=== PATIENT | male | born 1985 | race Hispanic/Latino ===

== ENCOUNTER 2017-01-15 15:04 | Emergency (ER) | payer OTHER ==
[2017-01-15] MEDS ORDERED: Naproxen 500 MG TAB PO STA (15:48)
--- NOTE | 2017-01-15 15:55 | ED PDOC ---
Upper Extremity Pain/Injury Time Seen by Provider: 01/15/17 15:40 Chief Complaint (Nursing): Upper Extremity Problem/Injury Chief Complaint (Provider): Lt shoulder pain History Per: Patient History/Exam Limitations: no limitations Onset/Duration Of Symptoms: Days (1 week) Current Symptoms Are (Timing): Still Present Quality: "Pain" Exacerbating Factor(s): Strenuous Use Of Affected Area, Movement Additional Complaint(s): The pt is a 31yo male, presents to the ED for evaluation of left sided shoulder pain for the psat week. 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 Pt states the pain radiates to his forearm with strenuous use. He reports taking Motrin for pain with minimal relief. He denies any injury or objects falling onto his shoulder. Currently, he offers no additional medical complaints. Past Medical History Reviewed: Historical Data, Nursing Documentation, Vital Signs Vital Signs: Last Vital Signs Temp 98.3 F 01/15/17 15:15 Pulse 70 01/15/17 15:15 Resp 18 01/15/17 15:15 BP 125/66 01/15/17 15:15 Pulse Ox 99 01/15/17 15:15 - Medical History PMH: Arthritis (back, knees) Denies: Depression, Chronic Kidney Disease - Surgical History Surgical History: No Surg Hx - Family History Family History: States: Unknown Family Hx - Living Arrangements Living Arrangements: With Family - Home Medications Home Medications: Ambulatory Orders Medication Instructions Recorded Ibuprofen [Motrin] 600 mg PO Q6 PRN #20 tab 12/04/14 Oxycodone HCl/Acetaminophen 1 tab PO PRN PRN 12/04/14 [Percocet 325 mg-5 mg] Oxycodone HCl/Acetaminophen 1 tab PO Q6 #10 tab 12/04/14 [Percocet 325 mg-5 mg] diaZEpam [Valium] 5 mg PO Q8 PRN #6 tab 12/04/14 Albuterol HFA [Ventolin HFA 90 0.09 mg IH Q4 #1 puff 07/17/15 mcg/actuation (8 g)] Azithromycin 250 mg PO DAILY #6 tab 07/17/15 Fluticasone Propionate [Flonase] 1 spr INH DAILY #1 bottle 07/17/15 Loratadine/Pseudoephedrine S 1 t12 PO BID #20 t12 07/17/15 [Claritin-D 12Hr 5 mg-120 mg] Amoxicillin/Clavulanate Pota 1 tab PO BID #20 tab 07/20/15 [Augmentin 875 mg-125 mg] Oxycodone HCl/Acetaminophen 1 tab PO Q6 PRN #10 tab 11/01/15 [Percocet 325 mg-5 mg] Methylprednisolone [Medrol] 4 mg PO TITR #1 unit 02/04/16 Famotidine [Pepcid] 20 mg PO DAILY PRN #6 tab 06/20/16 Ondansetron [Zofran] 4 mg PO Q8H PRN #6 tab 06/20/16 Naproxen [Naprosyn Tab] 375 mg PO Q8 PRN #21 tab 01/15/17 - Allergies Allergies/Adverse Reactions: Allergies Allergy/AdvReac Type Severity Reaction Status Date / Time No Known Allergies Allergy Verified 11/01/15 18:08 Review of Systems ROS Statement: Except As Marked, All Systems Reviewed And Found Negative Musculoskeletal: Positive for: Shoulder Pain (left) Physical Exam - Reviewed Nursing Documentation Reviewed: Yes Vital Signs Reviewed: Yes - Physical Exam Appears: Positive for: Well, Non-toxic, No Acute Distress Head Exam: Positive for: ATRAUMATIC, NORMAL INSPECTION, NORMOCEPHALIC Skin: Positive for: Normal Color Neck: Positive for: Normal Cardiovascular/Chest: Positive for: Regular Rate, Rhythm Respiratory: Negative for: Respiratory Distress Extremity: Positive for: Normal ROM (good adduction, normal bicep flexion and tricep extension.), Tenderness (tenderness noted to sub-scapular region. 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 ). Negative for: Deformity Neurologic/Psych: Positive for: Alert, Oriented - ECG O2 Sat by Pulse Oximetry: 99 Medical Decision Making Medical Decision Making: Time: 1550 Impression: Left shoulder pain Plan: -- XR Left shoulder -- Naproxen 500 mg PO --Reassess XR FINDINGS: BONES: Normal. No fracture. JOINTS: Normal. Glenohumeral and acromioclavicular joints preserved. No osteoarthritis. SOFT TISSUES: Normal. OTHER FINDINGS: None. IMPRESSION: Normal radiographs of the left shoulder. Pt. stable for d/c home. Will give Rx Naproxen for pain. Scribe Attestation: All records were documented by Arti John, acting as a Scribe for KIRAN Oliveira. Provider Scribe Attestation: All medical record entries made by the Scribe were at my direction and personally dictated by me. I have reviewed the chart and agree that the record accurately reflects my personal performance of the history, physical exam, medical decision making, and the department course for this patient. I have also personally directed, reviewed, and agree with the discharge instructions and disposition. Disposition - Clinical Impression Clinical Impression: Shoulder pain, Rotator cuff (capsule) sprain - Disposition Referrals: Arsen Delgado MD [Staff Provider] - Disposition: Routine/Home Disposition Time: 16:55 Condition: FAIR Prescriptions: Naproxen [Naprosyn Tab] 375 mg PO Q8 PRN #21 tab PRN Reason: Pain, Moderate (4-7) Instructions: Rotator Cuff Injury (ED) Forms: [facility] ED School/Work Excuse
[2017-01-15] MEDS ORDERED: Naproxen 500 MG TAB PO ONE (16:02)
[2017-01-15 16:07] VITALS: BP 125/66; PULSE 70; RESP 18; TEMP 98.3; O2SAT 99
--- NOTE | 2017-01-15 16:32 | RAD ---
PROCEDURE: Radiographs of the Left Shoulder HISTORY: SHOULDER PAIN COMPARISON: No prior. FINDINGS: BONES: Normal. No fracture. JOINTS: Normal. Glenohumeral and acromioclavicular joints preserved. No osteoarthritis. SOFT TISSUES: Normal. OTHER FINDINGS: None. IMPRESSION: Normal radiographs of the left shoulder.
== END 2017-01-15 17:55 | disposition home or self-care (01) ==
LOC: H.ER 15:04
DX: M25.512 Pain in left shoulder (principal); X50.0XXA Overexertion from strenuous movement or load, initial encounter; Y99.0 Civilian activity done for income or pay

== ENCOUNTER 2017-05-17 08:47 | Emergency (ER) | payer OTHER ==
[2017-05-17 08:52] VITALS: BP 113/62; PULSE 70; RESP 16; TEMP 98.8; O2SAT 99
[2017-05-17 08:54] VITALS: BMI 19.8
--- NOTE | 2017-05-17 10:08 | ED PDOC ---
Upper Extremity Pain/Injury Time Seen by Provider: 05/17/17 09:20 Chief Complaint (Nursing): Upper Extremity Problem/Injury Chief Complaint (Provider): Right Wrist Pain History Per: Patient History/Exam Limitations: no limitations Onset/Duration Of Symptoms: Days (x 1) Current Symptoms Are (Timing): Still Present Additional Complaint(s): Jose is a 31 y/o male with a history of arthritis who presents to the ED after falling while skateboarding yesterday. He complains of pain in his right wrist, especially when rotating his forearm. Patient denies any other medical complaints. PMD: None Provided Past Medical History Reviewed: Historical Data, Nursing Documentation, Vital Signs Vital Signs: Last Vital Signs Temp 98.8 F 05/17/17 08:52 Pulse 70 05/17/17 08:52 Resp 16 05/17/17 08:52 BP 113/62 05/17/17 08:52 Pulse Ox 99 05/17/17 08:52 - Medical History PMH: Arthritis (back, knees) Denies: Depression, Chronic Kidney Disease - Family History Family History: States: Unknown Family Hx - Social History Current smoker - smoking cessation education provided: Yes SMOKER/PACKS PER DAY:: 1 Alcohol: None Drugs: Denies - Home Medications Home Medications: Ambulatory Orders Medication Instructions Recorded No Known Home Med 05/17/17 - Allergies Allergies/Adverse Reactions: Allergies Allergy/AdvReac Type Severity Reaction Status Date / Time No Known Allergies Allergy Verified 05/17/17 09:04 Review of Systems ROS Statement: Except As Marked, All Systems Reviewed And Found Negative Musculoskeletal: Positive for: Arm Pain (right wrist) Physical Exam - Reviewed Nursing Documentation Reviewed: Yes Vital Signs Reviewed: Yes - Physical Exam Appears: Positive for: Non-toxic, No Acute Distress Head Exam: Positive for: ATRAUMATIC, NORMAL INSPECTION, NORMOCEPHALIC Skin: Positive for: Normal Color, Warm, Dry Cardiovascular/Chest: Positive for: Regular Rate, Rhythm. Negative for: Murmur Respiratory: Negative for: Wheezing, Respiratory Distress Extremity: Positive for: Tenderness (right wrist), Swelling (right wrist). Negative for: Deformity Neurologic/Psych: Positive for: Alert, Oriented - ECG O2 Sat by Pulse Oximetry: 99 (RA) Pulse Ox Interpretation: Normal Medical Decision Making Medical Decision Making: Time: 10:09 Initial Impression: Right wrist injury Initial Plan: --XR Right Hand/Wrist --Oxycodone/Acetaminophen Time: 1200 Right wrist splinted. Patient has elected to leave the ED before his treatment is complete. He doest not want to wait for xrays to be read by radiologist ( there is a delay in transmission of xxray reports from radiologist, pt made aware of this delay on multiple occassions) as there is a suspicion of fracture. pt instructed to follow up with orthopedist. Pt walked out of ER. Scribe Attestation: Documented by Marcellus Valdes, acting as a scribe for Dr. Cesar Louis. Provider Scribe Attestation: All medical record entries made by the Scribe were at my direction and personally dictated by me. I have reviewed the chart and agree that the record accurately reflects my personal performance of the history, physical exam, medical decision making, and the department course for this patient. I have also personally directed, reviewed, and agree with the discharge instructions and disposition. Disposition - Clinical Impression Clinical Impression: Wrist injury - Patient ED Disposition Is Patient to be Admitted: No - Disposition Disposition: Left W/O Treatment Disposition Time: 12:00 Condition: STABLE Forms: [employer] ([place] Citizen)
[2017-05-17] MEDS ORDERED: Oxycodone/Acetaminophen 5/325 mg Tab PO ONE (10:09)
[2017-05-17] MEDS ORDERED: Oxycodone/Acetaminophen 5/325 mg Tab ONE (10:27)
--- NOTE | 2017-05-17 13:08 | RAD ---
PROCEDURE: Right Hand Radiographs. HISTORY: Fall COMPARISON: None. FINDINGS: BONES: There is no acute displaced fracture or bone destruction. Bone alignment and mineralization are normal. JOINTS: Normal. No osteoarthritic changes. SOFT TISSUES: Normal. OTHER FINDINGS: None. IMPRESSION: No acute fracture or dislocation.
--- NOTE | 2017-05-17 15:05 | RAD ---
PROCEDURE: Right Wrist Radiographs. HISTORY: Fall COMPARISON: None. FINDINGS: BONES: There is an apparent lucency in the scaphoid waist. Bone alignment and mineralization are normal. JOINTS: The joint spaces are preserved. SOFT TISSUES: There is mild soft tissue swelling at the wrist joint. OTHER FINDINGS: None. IMPRESSION: Apparent lucency in the scaphoid waist may represent a nondisplaced fracture. Additional views of the wrist (scaphoid views) are recommended for definitive evaluation.
== END 2017-05-17 12:10 | disposition left against medical advice (07) ==
LOC: H.ER 08:47
DX: S69.91XA Unspecified injury of right wrist, hand and finger(s), initial encounter (principal); V00.131A Fall from skateboard, initial encounter; Y93.51 Activity, roller skating (inline) and skateboarding

== ENCOUNTER 2017-08-04 19:40 | Emergency (ER) | payer OTHER ==
[2017-08-04 19:40] VITALS: BMI 19.8
[2017-08-04 19:46] VITALS: BP 111/73; PULSE 77; RESP 16; TEMP 97.8; O2SAT 97
[2017-08-04] MEDS ORDERED: Oxycodone/Acetaminophen 5/325 mg Tab PO STA (20:52)
--- NOTE | 2017-08-04 21:02 | ED PDOC ---
HPI: Back Time Seen by Provider: 08/04/17 19:50 Chief Complaint (Nursing): Back Pain Chief Complaint (Provider): fever/back pain History Per: Patient History/Exam Limitations: no limitations Additional Complaint(s): 31yo M in ED -states for 2 day has had fever peaked at 101 with sore throat cough body aches no sick contacts no pal pt also c/o of back pain after moving furniture with friends. now feels a pulled muscle to lumbar spine-has herniated lumbar disc. no incontinence of urine or BM. no numbness or tingling in LE. Past Medical History Reviewed: Historical Data, Nursing Documentation, Vital Signs Vital Signs: Last Vital Signs Temp 97.8 F 08/04/17 19:44 Pulse 77 08/04/17 19:44 Resp 16 08/04/17 19:44 BP 111/73 08/04/17 19:44 Pulse Ox 97 08/04/17 19:44 - Medical History PMH: Arthritis (back, knees) Denies: Depression, Chronic Kidney Disease - Family History Family History: States: Unknown Family Hx - Home Medications Home Medications: Ambulatory Orders Medication Instructions Recorded Oseltamivir Phosphate [Tamiflu] 75 mg PO BID #10 capsule 08/04/17 - Allergies Allergies/Adverse Reactions: Allergies Allergy/AdvReac Type Severity Reaction Status Date / Time No Known Allergies Allergy Verified 05/17/17 09:04 Review of Systems ROS Statement: Except As Marked, All Systems Reviewed And Found Negative Gastrointestinal: Negative for: Nausea, Vomiting, Abdominal Pain Musculoskeletal: Positive for: Back Pain Physical Exam - Reviewed Nursing Documentation Reviewed: Yes Vital Signs Reviewed: Yes - Physical Exam Appears: Positive for: Well, Non-toxic, No Acute Distress Head Exam: Positive for: ATRAUMATIC, NORMAL INSPECTION, NORMOCEPHALIC Skin: Positive for: Normal Color, Warm, DRY Eye Exam: Positive for: Normal appearance, EOMI, PERRL Neck: Positive for: Normal, Painless ROM Cardiovascular/Chest: Positive for: Regular Rate, Rhythm Respiratory: Positive for: CNT, Normal Breath Sounds Gastrointestinal/Abdominal: Positive for: Normal Exam, Bowel Sounds, Soft. Negative for: Tenderness Back: Positive for: Normal Inspection. Negative for: L CVA Tenderness, R CVA Tenderness Extremity: Positive for: Normal ROM Neurologic/Psych: Positive for: Alert, Oriented - ECG O2 Sat by Pulse Oximetry: 97 - Progress ED Course And Treament: Orders Category Date Time Status Ketorolac [Toradol] Med 08/04/17 20:13 Discontinued 30 mg IM STAT STA oxyCODONE/Acetaminophen [Percocet 5/325 mg Tab] Med 08/04/17 20:52 Stat 1 tab PO STAT STA INFLUENZA A B Stat Serology 08/04/17 20:52 Uncollected Medical Decision Making Medical Decision Making: pt will stlll ed/c with tamiflu due to presentation and symptoms. pt advsied to f.u with pmd for back pain crhonci. Orders Category Date Time Status Ketorolac [Toradol] Med 08/04/17 20:13 Discontinued 30 mg IM STAT STA oxyCODONE/Acetaminophen [Percocet 5/325 mg Tab] Med 08/04/17 20:52 Discontinued 1 tab PO STAT STA INFLUENZA A B Stat Serology 08/04/17 21:02 Completed 08/04/17 21:02 Influenza Typ A,B (EIA) Negative for flu a/b Disposition - Clinical Impression Clinical Impression: Back strain, Influenza - Patient ED Disposition Is Patient to be Admitted: No Counseled Patient/Family Regarding: Studies Performed, Diagnosis, Need For Followup, Rx Given - Disposition Referrals: LTAC[facility] [Outside] [facility] [Outside] Disposition: Routine/Home Disposition Time: 22:06 Condition: STABLE Prescriptions: Oseltamivir Phosphate [Tamiflu] 75 mg PO BID #10 capsule Instructions: Influenza (ED)
== END 2017-08-04 22:15 | disposition home or self-care (01) ==
LOC: H.ER 19:40
DX: J11.1 Influenza due to unidentified influenza virus with other respiratory manifestations (principal); M54.9 Dorsalgia, unspecified

== ENCOUNTER 2018-01-22 16:09 | Emergency (ER) | payer SELFPAY ==
[2018-01-22 16:09] VITALS: BMI 19.8
[2018-01-22 16:23] VITALS: BP 113/60; PULSE 79; RESP 20; TEMP 98.5; O2SAT 99
[2018-01-22] MEDS ORDERED: Tdap Vaccine 0.5 ml Vial (10-64 yrs) IM ONE ×2 (16:38→16:52)
--- NOTE | 2018-01-22 18:10 | RAD ---
PROCEDURE: Left Hand Radiographs. HISTORY: left hand laceration COMPARISON: None. FINDINGS: BONES: Normal. No fracture. JOINTS: Normal. No osteoarthritic changes. SOFT TISSUES: Laceration at the level of the interphalangeal joint left thumb. No visulaized radiopaque/visualized foreign body. OTHER FINDINGS: None. IMPRESSION: No significant osseous or articular abnormalities nor is there evidence of foreign body.
[2018-01-22] MEDS ORDERED: Oxycodone/Acetaminophen 5/325 mg Tab PO ONE (18:52)
--- NOTE | 2018-01-22 18:53 | ED PDOC ---
HPI: Wound Care - HPI Time Seen by Provider: 01/22/18 16:33 Chief Complaint (Nursing): Abnormal Skin Integrity Chief Complaint (Provider): Laceration to left hand History Per: Patient History Of Present Illness: 32 year old male sent from urgent care (prompt ) for treatment and reevaluation of laceration to left hand. Patient reports that around 3pm today he was cutting some wood for his friend when his hand slipped from the R causing him to cut his left hand. Tetanus not up to date. Exam Limitations: no limitations Onset/Duration Of Symptoms: Hrs Current Symptoms Are (Timing): Still Present Past Medical History Reviewed: Historical Data, Nursing Documentation, Vital Signs Vital Signs: Last Vital Signs Temp 98.5 F 01/22/18 16:17 Pulse 79 01/22/18 16:17 Resp 20 01/22/18 16:17 BP 113/60 01/22/18 16:17 Pulse Ox 99 01/22/18 16:17 - Medical History PMH: Arthritis (back, knees) Denies: Depression, Chronic Kidney Disease - Surgical History Surgical History: No Surg Hx - Family History Family History: States: Unknown Family Hx - Social History Current smoker - smoking cessation education provided: Yes (Heavy Smoker > 10 Cigarettes Daily) Alcohol: None Drugs: Denies - Home Medications Home Medications: Ambulatory Orders Medication Instructions Recorded Cephalexin [Keflex] 500 mg PO Q6 #28 capsule 01/22/18 - Allergies Allergies/Adverse Reactions: Allergies Allergy/AdvReac Type Severity Reaction Status Date / Time No Known Allergies Allergy Verified 01/22/18 16:36 Review of Systems ROS Statement: Except As Marked, All Systems Reviewed And Found Negative Musculoskeletal: Positive for: Hand Pain (laceration to dorsum of left hand) Physical Exam - Reviewed Nursing Documentation Reviewed: Yes Vital Signs Reviewed: Yes - Physical Exam Appears: Positive for: Non-toxic, No Acute Distress Skin: Positive for: Normal Color, Warm, Dry. Negative for: Rash Cardiovascular/Chest: Negative for: Tachycardia Respiratory: Negative for: Wheezing, Respiratory Distress Extremity: Positive for: Other (1 cm laceration on dorsum of left hand right below the thumb. hand warm and dry, intact neurovascular exam; cap refills less than 2 seconds;2+ radial pulse 2+ strong;Wound appears to be deep w some ligament exposed and slight oozing of blood. no surrounding cellulitis.). Negative for: Tenderness, Deformity, Swelling Neurologic/Psych: Positive for: Alert, Oriented - ECG O2 Sat by Pulse Oximetry: 99 (RA) Pulse Ox Interpretation: Normal Medical Decision Making Medical Decision Makin Initial Impression 32 year old male presenting with laceration to left hand Initial plan: * RAD left hand * Percocet 1 tab PO * Adacel 0.5 ml IM * 1635 Apparently, Dr Talha Martinez- Hand surgeon- is on his way to come to see this patient and repair the laceration (he had been called prior to arrival of pt to do procedure) Pt was aware of that plan. He is in agreement with plan. 1700 Dr Martinez is not coming in as he got caught up in the office and is unable to come. Pt wants to know when the specialist will be coming to repair the wound. [address] Massey (plastic surgeon) who will come to the ER to repair the laceration. Wound irrigated. [address] Jalloh. pending Dr Massey arrival. ------- Documented by Angi Rodriguez acting as a scribe for Cesar Louis MD. All medical record entries made by the Scribe were at my direction and personally dictated by me. I have reviewed the chart and agree that the record accurately reflects my personal performance of the history, physical exam, medical decision making, and the department course for this patient. I have also personally directed, reviewed, and agree with the discharge instructions and disposition. Disposition - Clinical Impression Clinical Impression: Laceration of left hand - Patient ED Disposition Is Patient to be Admitted: Transfer of Care - Disposition Referrals: Mayra Jones MD [Staff Provider] - Disposition: Transfer of Care Disposition Time: 19:00 Condition: STABLE Prescriptions: Cephalexin [Keflex] 500 mg PO Q6 #28 capsule Instructions: Laceration Repair, Laceration Repair With Stitches (DC) Forms: [employer] (Spanish), [facility] ED School/Work Excuse
[2018-01-22] MEDS ORDERED: Oxycodone/Acetaminophen 5/325 mg Tab ONE (18:55)
--- NOTE | 2018-01-22 19:30 | ED PDOC ---
- ECG O2 Sat by Pulse Oximetry: 99 (RA) Pulse Ox Interpretation: Normal Medical Decision Making Medical Decision Making: Time: 19:00 Patient signed out to me by Dr. Louis pending plastic surgical consult. At 19:40 Patient was informed by RN that Dr. Massey would not be available until 20:45 for a suture repair. He thereafter requested that an ED provider suture his wound. This provider was unavailable at that time due to active care ogf a critical patient. The patient was offered earlier closure by a PA which he refused. Patient subsequently eloped. Provider was thereafter informed by charge weigher that patient was in waiting room attempting to file a complaint regarding delay in care after he had physically left to smoke a cigarette. [facility] Zainab Ortiz was able to successfully convince patient to return to his ED room for further treatment. He became amenable for suturing by ED provider. Provider expressed understanding of patient's frustration with the delay in his care. Please refer to laceration procedure note. DX Left Hand Laceration Patient was instructed to follow-up with hand surgeon Dr. Bryant. Scribe Attestation: Documented by James Guy acting as a scribe Yury Jalloh MD. Scribe Attestation: All medical record entries made by the Scribe were at my direction and personally dictated by me. I have reviewed the chart and agree that the record accurately reflects my personal performance of the history, physical exam, medical decision making, and the department course for this patient. I have also personally directed, reviewed, and agree with the discharge instructions and disposition. Disposition - Clinical Impression Clinical Impression: Laceration of left hand - POA Present On Arrival: None - Disposition Referrals: Mayra Jones MD [Staff Provider] - Disposition: Routine/Home Disposition Time: 21:00 Condition: STABLE Prescriptions: Cephalexin [Keflex] 500 mg PO Q6 #28 capsule Instructions: Laceration Repair, Laceration Repair With Stitches (DC) Forms: [employer] (Romanian), [facility] ED School/Work Excuse Procedure: Wound Repair - Time Performed Time Performed: 20:50 - Procedure Procedure: Wound Repair: 2% Lidocaine was used. 9, 5.0 monocryl sutures were used to the left hand. - Indications Indication(s):: Laceration - Location Location:: Hand (left) - Anesthetic Technique Local/Regional Anesthetic:: Lidocaine 2% - Debris Debris:: None - Patient tolerated procedure Patient Tolerated Procedure:: Well Procedures - Laceration/Wound Repair Hand Wound Length (cm): 5 Wound's Depth, Shape: into muscle, linear Wound Explored: no foreign body removed Betadine Prep?: Yes Anesthesia: 1% Lidocaine Volume Anesthetic (ccs): 5 Wound Debrided: minimal Suture Size/Type: 5:0, proline Number of Sutures: 9 Layer Closure?: No Wound Complexity: Simple Sterile Dressing Applied?: Yes Splint Applied?: No Sling Applied?: Yes Progress: Left hand laceratio sutured yessicayth good cosmetic effect and closure. Patient tolerated procedure well.
[2018-01-22] MEDS ORDERED: Lidocaine 2% Inj (20ml) ONE (20:40)
== END 2018-01-22 21:46 | disposition home or self-care (01) ==
LOC: H.ER 16:09
DX: S61.412A Laceration without foreign body of left hand, initial encounter (principal); W26.8XXA Contact with other sharp object(s), not elsewhere classified, initial encounter; Y92.89 Other specified places as the place of occurrence of the external cause

== ENCOUNTER 2018-09-18 01:37 | Emergency (ER) | payer SELFPAY ==
[2018-09-18 01:38] VITALS: BMI 19.8
[2018-09-18 01:41] VITALS: RESP 18
--- NOTE | 2018-09-18 03:12 | ED PDOC ---
History of Present Illness History of Present Illness: 32 year old M with no PMHx presenting with flu-like symptoms, states he has multiple family members who were diagnosed with the flu and he started with symptoms Sunday night of fever, chills, bodyaches, dry cough. States he vomited x 1 today. States he's been taking tylenol and motrin without relief. States his eyes are burning and he feels as though he has phlegm and is congested. HPI: Influenza Time Seen by Provider: 09/18/18 01:46 Chief Complaint: Flu-like Symptoms History Per: Patient Exam Limitations: no limitations Onset/Duration Of Symptoms: Days Symptoms include: fever, headache, bodyaches, sore throat, cough, nasal congestion, vomiting Sick Contacts (Context): Family Member(s) Past Medical History Vital Signs: Last Vital Signs Temp 100.2 F H 09/18/18 01:39 Pulse 97 H 09/18/18 01:39 Resp 18 09/18/18 01:39 BP 119/56 L 09/18/18 01:39 Pulse Ox 97 09/18/18 01:39 - Medical History PMH: Arthritis (back, knees) Denies: Depression, Chronic Kidney Disease - Family History Family History: States: Unknown Family Hx - Home Medications Home Medications: Ambulatory Orders Medication Instructions Recorded Cephalexin [Keflex] 500 mg PO Q6 #28 capsule 01/22/18 Ondansetron ODT [Zofran ODT] 4 mg PO Q8 PRN #12 odt 09/18/18 Oseltamivir Phosphate [Tamiflu] 75 mg PO BID 5 Days #10 capsule 09/18/18 - Allergies Allergies/Adverse Reactions: Allergies Allergy/AdvReac Type Severity Reaction Status Date / Time No Known Allergies Allergy Verified 01/22/18 16:36 Review of Systems ROS Statement: Except As Marked, All Systems Reviewed And Found Negative Constitutional: Positive for: Fever, Chills ENT: Positive for: Nose Congestion, Throat Pain Gastrointestinal: Positive for: Nausea, Vomiting Physical Exam - Reviewed Nursing Documentation Reviewed: Yes Vital Signs Reviewed: Yes - Physical Exam Appears: Positive for: Well, Non-toxic, No Acute Distress Head Exam: Positive for: ATRAUMATIC, NORMAL INSPECTION, NORMOCEPHALIC Skin: Positive for: Normal Color, Warm, DRY Eye Exam: Positive for: EOMI, Normal appearance, PERRL ENT: Positive for: Normal ENT Inspection Neck: Positive for: Normal, Painless ROM Cardiovascular/Chest: Positive for: Regular Rate, Rhythm Respiratory: Positive for: CNT, Normal Breath Sounds Gastrointestinal/Abdominal: Positive for: Normal Exam, Soft Back: Positive for: Normal Inspection Extremity: Positive for: Normal ROM Neurologic/Psych: Positive for: Alert, butcherette II-XII, Oriented. Negative for: Motor/Sensory Deficits Medical Decision Making Medical Decision MakinAM Patient presenting with flu-like illness --Patient is very well appearing, low grade fever currently --Symptoms are likely related to flu, will treat symptomatically, patient within treatment window for tamiflu 600AM --Patient tolerating PO, vitals stable, well appearing upon discharge - ECG O2 Sat by Pulse Oximetry: 97 Disposition - Clinical Impression Clinical Impression: Influenza - Disposition Referrals: [facility] [Outside] Disposition: Routine/Home Disposition Time: 06:00 Condition: IMPROVED Prescriptions: Ondansetron ODT [Zofran ODT] 4 mg PO Q8 PRN #12 odt PRN Reason: Nausea/Vomiting Oseltamivir Phosphate [Tamiflu] 75 mg PO BID 5 Days #10 capsule Instructions: Flu, Adult (DC) Forms: [facility] (H[place]ian)
[2018-09-18 04:50] VITALS: BP 122/60; PULSE 90
[2018-09-18 06:03] VITALS: TEMP 98.6
[2018-09-18 06:35] VITALS: O2SAT 97
== END 2018-09-18 06:05 | disposition home or self-care (01) ==
LOC: H.ER 01:37
DX: J11.1 Influenza due to unidentified influenza virus with other respiratory manifestations (principal)